=== PATIENT | male | born 1990 | race Caucasian/White ===

== ENCOUNTER 2020-05-22 23:53 | Emergency (ER) | payer SELFPAY ==
[~2020-05-22] VITALS: Ht 180.3 cm; Wt 72.0 kg
[2020-05-23] MEDS ORDERED: HYDROmorphone PF 1 MG/ML DISP.SYRIN IM ONE (00:15)
[2020-05-23] MEDS ORDERED: LIDOCAINE 1%/EPI 1:100,000 20 ML VIAL. IJ ONE (00:15)
[2020-05-23] MEDS ORDERED: HYDROmorphone PF 1 MG/ML DISP.SYRIN ONE (00:15)
[2020-05-23 00:47] VITALS: BP 111/64
--- NOTE | 2020-05-23 01:00 | PHYS DOC ---
General Adult EDM: Chief Complaint: LACERATION/AVULSION HPI: HPI: Patient is a 29-year-old male brought in by EMS for laceration to his volar left forearm. Patient states he was trying to cut some frozen ground beef when the knife slipped and cut his arm. Last tetanus shot was in the last year. Patient denies any intentions of self-harm. Review of Systems: Review of Systems: Constitutional: Denies fever or chills Eyes: Denies change in visual acuity HENT: Denies nasal congestion or sore throat Respiratory: Denies cough or shortness of breath Cardiovascular: Denies chest pain or edema GI: Denies abdominal pain, nausea, vomiting, bloody stools or diarrhea : Denies dysuria Musculoskeletal: Denies back pain or joint pain Integument: Laceration Neurologic: Denies headache, focal weakness or sensory changes Endocrine: Denies polyuria or polydipsia Lymphatic: Denies swollen glands Psychiatric: Denies depression or anxiety Current Medications: Current Meds: Current Medications Medications (Trade) Dose Ordered Sig/Toribio Start Time Stop Time Status Last Admin Dose Admin Hydromorphone HCl (Dilaudid) 1 mg STK-MED ONCE 05/23/20 00:15 05/23/20 00:16 DC Lidocaine/ Epinephrine (Xylocaine 1%-Epi 1:100,000) 20 ml 1X ONCE 05/23/20 00:15 05/23/20 00:16 DC 05/23/20 00:15 20 ML Allergies: Allergies: Allergies Coded Allergies Type Severity Reaction Last Updated Verified No Known Drug Allergies 05/23/20 No Physical Exam: PE: Constitutional: Well developed, well nourished, no acute distress, non-toxic appearance. [] HENT: Normocephalic, atraumatic, bilateral external ears normal, oropharynx moist, no oral exudates, nose normal. [] Eyes: PERRLA, EOMI, conjunctiva normal, no discharge. [] Neck: Normal range of motion, no tenderness, supple, no stridor. [] Cardiovascular:Heart rate regular rhythm, no murmur [] Lungs & Thorax: Bilateral breath sounds clear to auscultation [] Abdomen: Bowel sounds normal, soft, no tenderness, no masses, no pulsatile masses. [] Skin: Warm, dry, no erythema, no rash. [] 12 cm laceration to Back: No tenderness, no CVA tenderness. [] Extremities: No tenderness, no cyanosis, no clubbing, ROM intact, no edema. [] Laceration with exposed muscle, approximately 3 cm of fascia over muscle involvement no identifiable tendon involvement Neurologic: Alert and oriented X 3, normal motor function, normal sensory func tion, no focal deficits noted. [] No deficits below injury Psychologic: Affect normal, judgement normal, mood normal. [] EKG: EKG: [] Radiology/Procedures: Radiology/Procedures: Indication: Laceration Procedure: The patient was placed in the appropriate position and anesthesia around the left volar forearm, 12 cm laceration with 1% epi with lidocaine. The area was then extensively cleansed and debrided, no foreign body or material.. The laceration was muscle closure with 5-0 Vicryl, 1 simple interrupted and then accompanied by running sutures with good approximation of muscle fascia, outer layer closed with 10 dano. The wound was cleaned, dressed with antibiotic ointment and nonadherent dressing Total repaired wound length: 12 cm Other Items: Complex laceration. Due to muscle fascia involvement. The patient tolerated the procedure with some distress Complications none Heart Score: Risk Factors: Risk Factors: DM, Current or recent (<one month) smoker, HTN, HLP, family history of CAD, obesity. Risk Scores: Score 0 - 3: 2.5% MACE over next 6 weeks - Discharge Home Score 4 - 6: 20.3% MACE over next 6 weeks - Admit for Clinical Observation Score 7 - 10: 72.7% MACE over next 6 weeks - Early Invasive Strategies Course & Med Decision Making: Course & Med Decision Making Pertinent Labs and Imaging studies reviewed. (See chart for details) [] Melinda Disclaimer: Melinda Disclaimer: This electronic medical record was generated, in whole or in part, using a voice recognition dictation system. Departure Departure: Impression: Primary Impression: Laceration of muscle of left forearm Additional Impression: Laceration of skin of left forearm Disposition: 01 DC HOME SELF CARE/HOMELESS Condition: STABLE Referrals: [facility] Patient Instructions: Laceration Care, Adult, [id number] Additional Instructions: [place] may be removed in 10 days. Return to emergency department or your primary care provider for staple removal. Watch the wound for signs of infection. Return to emergency department if pain worsens or unable to move hand and fingers distal to injury Scripts Tramadol Hcl (TRAMADOL HCL) 50 Mg Tablet 50 MG PO PRN Q6HRS PRN for PAIN for 3 Days, #10 TAB Prov: EMILY FRANCISCO MD 05/23/20 EMILY FRANCISCO MD May 23, 2020 01:00
[2020-05-23] MEDS ORDERED: TRAM50TA PO (01:10)
[2020-05-23] MEDS ORDERED: HYDROcodone/APAP 5/325MG 1 TAB TABLET PO ONE (01:15)
[2020-05-23] MEDS ORDERED: NEOMY/BACITR/POLYMYXIN OINT PACKET. TP ONE (01:15)
== END 2020-05-23 02:00 | disposition home or self-care (01) ==
LOC: ER 23:53
DX: S51.812A Laceration without foreign body of left forearm, initial encounter (principal); W26.0XXA Contact with knife, initial encounter; Y93.89 Activity, other specified; Y92.89 Other specified places as the place of occurrence of the external cause; Y99.8 Other external cause status
CPT/HCPCS: 12034; 96372; 99284; J1170